=== PATIENT | male | born 1960 | race Caucasian/White ===

== ENCOUNTER → 2024-05-15 13:34 | Outpatient (REF) | payer BC, SELFPAY ==
[2024-05-15 14:32] LABS: Urine Albumin Negative (Neg - Trace); Urine Bilirubin Negative (Negative); Urine Character Clear (Clear); Urine Color Yellow; Urine Glucose Negative (Negative); Urine Ketone Negative (Negative); Urine Leukocyte Negative (Negative); Urine Nitrite Negative (Negative); Urine Occult Blood Trace (Negative); Urine Specific Gravity 1.015 (<1.030); Urine Urobilinogen Negative (Neg - 1+); Urine pH 6.5 (5.0-9.0)
[2024-05-15 14:37] LABS: % Basophils 0.6 % (0-2); % Eosinophils 5.1 % (0-6); % Immature Granulocytes 0.3 % (0-0.5); % Lymphocytes 19.9 % (20.5-51.1); % Monocytes 11.3 % (1.7-9.3); % Neutrophils 62.8 % (42.2-75.2); Absolute Eosinophils 0.2 10^3/uL (0-0.7); Absolute Lymphocytes 0.7 10^3/uL (1.2-3.4); Absolute Monocytes 0.4 10^3/uL (0.1-0.6); Absolute Neutrophils 2.1 10^3/uL (1.4-6.5); Hemoglobin 14.7 g/dL (13.0-18.0); Mean Corp Hgb Conc. 34.2 g/dL (33.0-37.0); Mean Corpuscular Hgb 30.7 pg (27.0-31.0); Mean Corpuscular Volume 89.8 fL (80.0-94.0); Mean Platelet Volume 10.4 fL (7.4-10.4); Nucleated Red Blood Cells % 0 % (-); Platelet Count 102 10^3/uL (130-400); Red Blood Cell Count 4.79 10^6/uL (4.70-6.10); Red Cell Dist. Width 14.1 % (11.5-14.5); White Blood Cell Count 3.4 10^3/uL (4.8-10.8)
[2024-05-15 14:40] LABS: ALT (SGPT) 42 U/L (0-50); AST (SGOT) 51 U/L (17-59); Albumin 4.5 g/dl (3.5-5.0); Alkaline Phosphatase 174 U/L (38-126); Blood Urea Nitrogen 30 mg/dl (9-20); Calcium 9.8 mg/dl (8.4-10.2); Carbon Dioxide 27 mmol/L (22-30); Chloride 105 mmol/L (98-107); Glucose 136 mg/dl (70-99); HDL Cholesterol 99 mg/dl; LDL Cholesterol, Calculated 41 mg/dl; Potassium 4.4 mmol/L (3.5-5.1); Sodium 142 mmol/L (135-145); Total Bilirubin 2.5 mg/dl (0.2-1.3); Total Cholesterol 148 mg/dl (50-199); Total Protein 7.6 g/dl (6.3-8.2); Triglyceride 41 mg/dl (10-149); Very Low Density Lipoprotein 8 mg/dl (0-30); eGFR > 60.00
[2024-05-15 15:07] LABS: Urine Bacteria Few (Negative); Urine Mucus Few; Urine Red Blood Cell 0-2 /HPF (0-2); Urine White Cell 0-2 /HPF (0-5)
[2024-05-15 15:22] LABS: Microalbumin, Random Urine 7.1 mg/dl (0.6-1.7)
[2024-05-16 09:49] LABS: Glycohemoglobin (HgbA1c) 7.2 % (4.0-5.6)
== END ==
LOC: REG 13:34
PROVIDERS: ATTENDING PHYSICIAN Physician Assistant; OTHER PHYSICIAN Internal Medicine Endocrinology, Diabetes & Metabolism
DX: E11.42 Type 2 diabetes mellitus with diabetic polyneuropathy (principal); K70.31 Alcoholic cirrhosis of liver with ascites; I10 Essential (primary) hypertension; Z12.5 Encounter for screening for malignant neoplasm of prostate; R35.0 Frequency of micturition
CPT/HCPCS: 36415; 80053; 80061; 81003; 81015; 82043; 83036; 85025; G0103

== ENCOUNTER → 2024-07-24 10:35 | Outpatient (REF) | payer BC, SELFPAY | LOC: RAD 10:35 | PROVIDERS: ATTENDING PHYSICIAN Podiatrist Foot & Ankle Surgery; FAMILY PHYSICIAN Physician Assistant | DX: E11.40 Type 2 diabetes mellitus with diabetic neuropathy, unspecified (principal); M14.60 Charcot's joint, unspecified site | CPT/HCPCS: 73630 ==

== ENCOUNTER → 2024-12-01 06:44 | Outpatient (REF) | payer BC, SELFPAY ==
[2024-12-01 07:43] LABS: % Eosinophils 4.5 % (0-6); % Immature Granulocytes 0.3 % (0-0.5); % Lymphocytes 17.9 % (20.5-51.1); % Monocytes 11.4 % (1.7-9.3); % Neutrophils 64.9 % (42.2-75.2); Absolute Eosinophils 0.1 10^3/uL (0-0.7); Absolute Lymphocytes 0.5 10^3/uL (1.2-3.4); Absolute Monocytes 0.3 10^3/uL (0.1-0.6); Absolute Neutrophils 1.9 10^3/uL (1.4-6.5); Hematocrit 46.5 % (39.0-52.0); Hemoglobin 15.3 g/dL (13.0-18.0); Mean Corp Hgb Conc. 32.9 g/dL (33.0-37.0); Mean Corpuscular Hgb 31.7 pg (27.0-31.0); Mean Corpuscular Volume 96.3 fL (80.0-94.0); Mean Platelet Volume 10.7 fL (7.4-10.4); Nucleated Red Blood Cells % 0 % (-); Platelet Count 107 10^3/uL (130-400); Red Blood Cell Count 4.83 10^6/uL (4.70-6.10); Red Cell Dist. Width 12.9 % (11.5-14.5); White Blood Cell Count 2.9 10^3/uL (4.8-10.8)
[2024-12-01 08:07] LABS: ALT (SGPT) 59 U/L (0-50); AST (SGOT) 57 U/L (17-59); Albumin 4.4 g/dl (3.5-5.0); Alkaline Phosphatase 174 U/L (38-126); Blood Urea Nitrogen 33 mg/dl (9-20); Calcium 8.8 mg/dl (8.4-10.2); Carbon Dioxide 29 mmol/L (22-30); Chloride 102 mmol/L (98-107); Glucose 131 mg/dl (70-99); Potassium 4.1 mmol/L (3.5-5.1); Sodium 140 mmol/L (135-145); Total Bilirubin 2.1 mg/dl (0.2-1.3); Total Protein 7.3 g/dl (6.3-8.2); eGFR > 60.00
[2024-12-01 08:33] LABS: PSA, Total - Screen 0.71 ng/ml (0.0-4.0); TSH Reflex To Free T4 1.86 uIU/ml (0.47-4.68)
== END ==
LOC: REG 06:44
PROVIDERS: ATTENDING PHYSICIAN Physician Assistant
DX: E11.42 Type 2 diabetes mellitus with diabetic polyneuropathy (principal); K70.9 Alcoholic liver disease, unspecified; F10.10 Alcohol abuse, uncomplicated; D53.9 Nutritional anemia, unspecified; M79.2 Neuralgia and neuritis, unspecified; Z13.29 Encounter for screening for other suspected endocrine disorder; R01.1 Cardiac murmur, unspecified; Z12.5 Encounter for screening for malignant neoplasm of prostate
CPT/HCPCS: 36415; 80053; 84443; 85025; G0103

== ENCOUNTER → 2025-05-07 08:07 | Outpatient (REF) | payer BC, SELFPAY ==
[2025-05-07 09:20] LABS: % Basophils 0.6 % (0-2); % Eosinophils 0.5 % (0-6); % Immature Granulocytes 0.3 % (0-0.5); % Lymphocytes 4.4 % (20.5-51.1); % Monocytes 16.2 % (1.7-9.3); Absolute Basophils 0.1 10^3/uL (0-0.2); Absolute Lymphocytes 0.3 10^3/uL (1.2-3.4); Absolute Monocytes 1.3 10^3/uL (0.1-0.6); Hematocrit 46.3 % (39.0-52.0); Hemoglobin 15.3 g/dL (13.0-18.0); Mean Corpuscular Hgb 31.6 pg (27.0-31.0); Mean Corpuscular Volume 95.7 fL (80.0-94.0); Nucleated Red Blood Cells % 0 % (-); Red Blood Cell Count 4.84 10^6/uL (4.70-6.10); Red Cell Dist. Width 14.6 % (11.5-14.5); White Blood Cell Count 7.7 10^3/uL (4.8-10.8)
[2025-05-07 09:35] LABS: Glycohemoglobin (HgbA1c) 7.3 % (4.0-5.6)
[2025-05-07 09:46] LABS: HDL Cholesterol 55 mg/dl; Iron 56 ug/dl (49-181); LDL Cholesterol, Calculated 88 mg/dl; Total Cholesterol 164 mg/dl (50-199); Triglyceride 109 mg/dl (10-149); Very Low Density Lipoprotein 21 mg/dl (0-30)
[2025-05-07 09:56] LABS: Percent Saturation 20 % (20-50); Total Iron Binding Capacity 268 ug/dl (261-462)
[2025-05-07 10:03] LABS: Microalbumin, Random Urine 10.4 mg/dl (0.6-1.7)
[2025-05-07 10:36] LABS: Vitamin B12 > 1000 pg/ml (239-931)
[2025-05-07 11:52] LABS: Mean Platelet Volume 11.4 fL (7.4-10.4); Platelet Count 94 10^3/uL (130-400)
== END ==
LOC: REG 08:07
PROVIDERS: ATTENDING PHYSICIAN Physician Assistant
DX: E11.42 Type 2 diabetes mellitus with diabetic polyneuropathy (principal); K70.9 Alcoholic liver disease, unspecified; F10.10 Alcohol abuse, uncomplicated; D53.8 Other specified nutritional anemias; M79.2 Neuralgia and neuritis, unspecified; Z13.29 Encounter for screening for other suspected endocrine disorder; R01.1 Cardiac murmur, unspecified; Z12.5 Encounter for screening for malignant neoplasm of prostate
CPT/HCPCS: 36415; 80061; 82043; 82607; 82728; 83036; 83540; 83550; 84425; 85025

== ENCOUNTER 2025-05-08 14:08 | Inpatient (IN) | payer BC, SELFPAY ==
[2025-05-08] VITALS (14 sets, daily range): BP systolic 115–163; BP diastolic 70–86; BMI 30.6; BMI 29.4
[2025-05-08] MEDS: TORADOL 15 MG IV (11:09)
--- NOTE | 2025-05-08 11:18 | ED.GENMED ---
History of Present Illness
General
Chief Complaint: Skin Problem
Source: patient
Exam Limitations: none
Time Seen by Provider: 05/08/25 10:34
Nursing documentation reviewed up to this point in time: agreed with
History of Present Illness
History of Present Illness:
Patient with history of diabetes presents to ED secondary to worsening open foot ulcer noted on the bottom of his left foot over the past 5 days w drainage. Since then, opening has gotten larger with swelling as well as redness and pain over his
left big toe. Denies fever, but reports chills sensation. Denies nausea or vomiting. Denies direct trauma. Patient does have history of neuropathy, and has decreased sensation of his extremities. Patient also in the past has had foot ulcer,
treated with antibiotics. Denies direct trauma.
Past History
Past History
ED Past Medical History: HTN and Hypercholesterolemia
ED Past Surgical History: Other (Eye)
Social History
Tobacco: Non-smoker
Alcohol: Chronic alcoholic
Drug: None
Personal:
Living: with family
Review of Systems
Review of Systems
All Other Systems: ROS reviewed and negative except as documented in HPI and ROS
Constitutional: Reports chills; Denies fever
EENT: Reports no symptoms
Respiratory: Reports no symptoms
ABD/GI: Reports no symptoms; Denies nausea or vomiting
Musculoskeletal: Reports other (Toe pain)
Skin: Reports other (foot ulcer with drainage)
Neurological: Reports no symptoms
Phy Exam
Physical Exam
Physical Exam:
Physical Exam
General: mild distress, not acutely ill. afebrile
Head: nc/at. eomi
Neck: supple. no meningeal signs.
Abdomen: normal bowel sounds. not tender.
Neuro: alert and oriented x 3. no focal neurological deficits
Skin: no rash
Psychiatric: well kept. interactive and cooperative
Extremities: left foot: an approx 0.5 cm open ulcer noted over plantar surface with purulent drainage, along with swelling/erythema upto midfoot. open wound/drainage also noted over dorsal aspect of left foot at base of 2nd
MTP.
Course
Orders/Labs/Results
Orders:
Orders
05/08/25 Lunch
2000 calorie (17 carb) Diabetic
At Your Request: Full Participation
05/08/25 10:53
Ketorolac [Toradol] 15 mg IV NOW STA
CR Foot - Left 2 Views Urgent
Comment:
Reason For Exam: open ulcer with drainage over plantar surface
05/08/25 11:04
Basic Metabolic Panel Urgent
Complete Blood Count/With Diff Urgent
Lactic Acid Q4H
Comment: CANCEL 2nd LACTIC ACID IF 1st LACTIC ACID IS LESS THAN 2
Magnesium Urgent
Blood Culture Q30M
MATHIEU Source: Blood/Venous
Specimen Description:
05/08/25 11:10
Piperacillin/Tazo 3.375 Gram [Zosyn] 3.375 gram in 50 ml IV NOW
05/08/25 11:31
Blood Culture Q30M
MATHIEU Source: Blood/Venous
Specimen Description:
05/08/25 12:08
Vancomycin [Vancocin] 2,000 mg 0.9% Sodium Chloride 500 ml [Nss] 500 ml IV NOW
05/08/25 12:33
Wound Culture [Wound/Abscess/Other Culture] Urgent
MATHIEU Source: Foot
Specimen Description: Left
Date Specimen was Collected: 05/08/25
Time Specimen was Collected: 12:29
05/08/25 13:47
Admit/Transfer Patient As Directed
Co-Sign Provider:
Level of Care: Inpatient admission
Assign to:: Medical/Surgical
Physician / Group: hospitalist-Jo
Diagnosis: foot cellulitis/ulcer
Reason for Hospitalization: IV abx
MRI
podiatry/ID consult
Expected length of stay greater than two midnights?: Yes
ELOS- Estimated Length of Stay in days: 4
I certify the patient meets the requirements for IP care: Yes
PRN Pain Medication Management As Directed
May give lesser potent ordered pain med per pt: Yes
preference::
Protocol:: Medication orders for pain may be administered in a
manner that supports deferring to patient preference
when the pt is:
- Requesting an ordered lesser potent pain medication.
Least to most potent pain medications are defined
as: acetaminophen < NSAID < tramadol < opioids
(morphine, oxycodone, hydromorphone).
- Requesting a lesser dose of the same medication IF
ORDERED.
- Requesting a less intrusive route of administration
if both routes are prescribed by the provider (PO <
IV).
05/08/25 13:49
Code Status As Directed
Resuscitation Status: Full Code
05/08/25 15:23
Acetaminophen [Tylenol] 650 mg PO Q6HPRN PRN
Dextrose 50%-Water [Dextrose 50% Syringe] 12.5 grams IV [id number] PRN
Glucagon [GlucaGen] 1 mg IM PRN PRN
HYDROmorphone [Dilaudid] 0.25 mg IV Q4HPRN PRN
Ketorolac [Toradol] 15 mg IV Q6HPRN PRN
VANCOMYCIN Pharmacy to Dose [VANCOCIN Pharmacy to Dose] 1 each Pharmacy To Prepare [Call Pharmacy To Prepare] 0 ml IV PER PROTOCOL
05/08/25 15:23
INFECTIOUS DISEASE CONSULT Routine
Consulting Provider: Vivienne Cunningham
Was physician already notified: Yes
PODIATRY CONSULT Routine
Consulting Provider: Mini Sims
Was physician already notified: Yes
Activity As Directed
Activity Level: Out of Bed-Early Mobility
Bedside Glucose Monitoring As Directed
Frequency: AC&HS
Additional Instructions:: Change to q6h if pt on TPN, tube feeding or not eating
Intake/ Output As Directed
Frequency: Per unit guidelines
Vital Signs As Directed
Frequency: Per unit guidelines
Pt Eval And Treat Routine
Activity Level: Out of Bed-Early Mobility
DX Deep Vein Thrombosis Video Routine
05/08/25 16:30
Insulin Aspart Corrective Low [Novolog Flexpen-Low Resistance] See Protocol SC AC
05/08/25 18:00
Enoxaparin Sodium [Lovenox] 40 mg SC QPM
Pregabalin [Lyrica] 75 mg PO QID
05/09/25 06:22
Complete Blood Count/No Diff IN AM
Comprehensive Metabolic Panel IN AM
05/09/25 06:54
MR Left Le No Joint Without Routine
Comment: ATTENTION TO LEFT FOOT--eval for depp abscess
Reason For Exam: cellulitis/ulcer
OK for patient to be off Cardiac Monitoring for MRI: Yes
Recent pill cam endoscopy?: No
05/09/25 08:00
Dapagliflozin [Farxiga] 10 mg PO DAILY
Duloxetine Delayed Release [Cymbalta Delayed Release] 60 mg PO DAILY
Abnormal Lab Results
05/08/25
11:04
RBC 4.66 L 10^6/uL
(4.70-6.10)
MCH 31.8 H pg
(27.0-31.0)
Plt Count 102 L 10^3/uL
(130-400)
MPV 11.3 H fL
(7.4-10.4)
Absolute Neuts (auto) 6.6 H 10^3/uL
(1.4-6.5)
Absolute Lymphs (auto) 0.3 L 10^3/uL
(1.2-3.4)
Absolute Monos (auto) 1.6 H 10^3/uL
(0.1-0.6)
Neutrophils % 77.1 H %
(42.2-75.2)
Lymphocytes % 2.9 L %
(20.5-51.1)
Monocytes % 18.4 H %
(1.7-9.3)
Carbon Dioxide 20 L mmol/L
(22-30)
BUN 38 H mg/dl
(9-20)
Glucose 258 H mg/dl
(70-99)
05/08/25 11:04
05/08/25 11:04
Vital Signs
Initial and Last Documented VS:
Initial Vital Signs
Temp Pulse Resp BP Pulse Ox
98.1 F 78 18 127/80 96
05/08/25 10:28 05/08/25 10:28 05/08/25 10:28 05/08/25 10:28 05/08/25 10:28
Last Documented Vital Signs
Temp Pulse Resp BP Pulse Ox
98.0 F 72 16 126/74 95
05/09/25 07:55 05/09/25 07:55 05/09/25 07:55 05/09/25 07:55 05/09/25 07:55
MDM/Problems Addressed
MDM/Problems Addressed:
History and exam concerning for rapidly progressing open wound with development of cellulitis, with clinical concern for development of osteomyelitis. As such, patient will be admitted for IV antibiotics.
X-ray report reviewed - no evidence osteomyelitis, but findings consistent with likely cellulitis and or abscess development.
*Pulse Oximetry
SaO2: 96
Oxygen Mode of Delivery: Room air
Patient hypoxic: no
*Critical Care Note
Total Time (30-74mins, 75-104mins- exclusive of procedures): Not Applicable
ED Attending Note
-
Portions of this chart may have been created with voice recognition software.� Occasional wrong word or��sound alike� substitutions may have occurred due to the inherent limitations of voice recognition software.
Discharge Plan
Departure
Patient Disposition: Admit
Date of Disposition: 05/08/25
Time of Disposition: 12:16
Admit to: Med/Surg
Presentation/result/management discussed w/ accepting MD/DO: Hospitalist
Discharge Problem:
Diabetic foot ulcer, Cellulitis
Interventions
Interventions:
*Risk Screen - Suicide Last Done: 05/08/25 10:28
*General Assessment Last Done: 05/08/25 10:28
*Neglect/Abuse Screening Last Done: 05/08/25 10:28
*ED- Fall Risk Assessment Last Done: 05/08/25 12:30
*ED COVID-19 Vaccine History Last Done: 05/08/25 12:30
*Nursing Disposition Last Done: 05/08/25 15:21
ED-Skin Assessment Last Done: 05/08/25 12:30
Discharge Date and Time
Discharge Date/Time: 05/08/25 15:28
[2025-05-08] MEDS: ZOSYN 50 IV ×2 (11:30→23:17)
[2025-05-08 11:34] LABS: Lactic Acid 1.2 mmol/L (0.7-2.0)
[2025-05-08 11:41] LABS: % Basophils 0.6 % (0-2); % Eosinophils 0.7 % (0-6); % Immature Granulocytes 0.3 % (0-0.5); % Lymphocytes 2.9 % (20.5-51.1); % Monocytes 18.4 % (1.7-9.3); % Neutrophils 77.1 % (42.2-75.2); Absolute Basophils 0.1 10^3/uL (0-0.2); Absolute Eosinophils 0.1 10^3/uL (0-0.7); Absolute Lymphocytes 0.3 10^3/uL (1.2-3.4); Absolute Monocytes 1.6 10^3/uL (0.1-0.6); Absolute Neutrophils 6.6 10^3/uL (1.4-6.5); Hematocrit 43.7 % (39.0-52.0); Hemoglobin 14.8 g/dL (13.0-18.0); Mean Corp Hgb Conc. 33.9 g/dL (33.0-37.0); Mean Corpuscular Hgb 31.8 pg (27.0-31.0); Mean Corpuscular Volume 93.8 fL (80.0-94.0); Mean Platelet Volume 11.3 fL (7.4-10.4); Nucleated Red Blood Cells % 0 % (-); Platelet Count 102 10^3/uL (130-400); Red Blood Cell Count 4.66 10^6/uL (4.70-6.10); Red Cell Dist. Width 14.3 % (11.5-14.5); White Blood Cell Count 8.6 10^3/uL (4.8-10.8)
[2025-05-08 11:45] LABS: Blood Urea Nitrogen 38 mg/dl (9-20); Calcium 8.6 mg/dl (8.4-10.2); Carbon Dioxide 20 mmol/L (22-30); Chloride 107 mmol/L (98-107); Estimated Creatinine Clearance 78 ml/min; Glucose 258 mg/dl (70-99); Magnesium 2.3 mg/dl (1.6-2.3); Potassium 4.5 mmol/L (3.5-5.1); Sodium 137 mmol/L (135-145); eGFR > 60.00
[2025-05-08] MEDS: VANCOCIN 540 MG IV (12:32)
--- NOTE | 2025-05-08 13:28 | HPS.HSE ---
Family Physician
-
Family Physician: Amira Davis
Chief Complaint
-
draining plantar foot ulcer
History of Present Illness
Patient is a 64-year-old male with a past medical history significant for type 2 diabetes mellitus and cirrhosis from alcohol who comes in complaining of left foot pain with bleeding from a foot ulcer. Patient states that this past May 03,
2024 he developed an ulcer on the bottom of his left foot. He states that on Saturday, May 05, 2025 it became red including red on the top/dorsum of the foot along with bleeding from the ulcer. He states that he had chills and fatigue but no
fevers. He stated that the redness started on this past Saturday and has not progressed. He reports only seeing bleeding and no pus draining. He is complaining of pain to that left foot as well. X-ray of the foot done in the emergency
department shows soft tissue swelling with gas in the soft tissues consistent with cellulitis although abscess or fasciitis cannot be ruled out. No evidence of osteomyelitis. Patient is being admitted.
Medical History
Past Medical History
Past Medical History: Reports Other
Additional Past Medical History:
Type 2 diabetes mellitus
Cirrhosis from presumed alcohol use
Past Surgical History: Reports Other
Additional Past Surgical History:
Repaired rupture patella tendon in 2006
Social History
Tobacco: Non-smoker
Alcohol: Other (There are reports that he has been 'an alcoholic' in the past--his last drink he said was April 19, 2025)
Drug: None
Personal:
Living: With Family
Family History
Family History: Adopted
Allergies / Home Medications
Allergies reflects when Allergies were last updated in [employer].
Home Medications with original date entered in [employer]
Allergy/Medication List:
Allergies
Allergy/AdvReac Type Severity Reaction Status Date / Time
No Known Allergies Allergy Verified 05/08/25 10:28
Home Medications
duloxetine 60 mg capsule,delayed release (Cymbalta) 60 mg PO DAILY 05/08/25
empagliflozin 10 mg tablet (Jardiance) 10 mg PO DAILY 05/08/25
ibuprofen 125 mg-acetaminophen 250 mg tablet (Advil Dual Action) 3 tab PO DAILYPRN PRN mild pain 05/08/25
pregabalin 75 mg capsule (Lyrica) 75 mg PO QID 05/08/25
Review of Systems
-
A 12 point ROS was completed and negative except as noted: Yes
Constitutional: Reports Fatigue and Chills; Denies Fever
EENT: Reports No Symptoms
Respiratory: Reports No Symptoms; Denies Cough or Trouble Breathing
Cardiac: Reports No Symptoms; Denies Chest Pain
Abdomen/GI: Reports No Symptoms; Denies Abdominal Pain, Nausea, Vomiting or Diarrhea
: Reports No Symptoms
Musculoskeletal: Reports Other (Red painful left foot with bleeding from bottom of foot)
Skin: Reports No Symptoms
Neurological: Reports No Symptoms
Endocrine: Reports No Symptoms
Hematologic/Lymphatic: Reports No Symptoms
Psych: Reports No Symptoms
Physical Exam
Vital Signs
Vital Signs
Temp Pulse Resp BP Pulse Ox
98.1 F 69 16 127/76 95
05/08/25 10:28 05/08/25 12:43 05/08/25 12:43 05/08/25 12:43 05/08/25 12:43
Physical Exam
General: Well Developed, Well Nourished, No Apparent Distress and Obese
HEENT: NormoCephalic, Anicteric and Atraumatic; No Oxygen
Respiratory: Clear; No Wheezes, Rales, Rhonchi or Crackles
Cardiac: S1/S2 and Regular Rhythm
GI: Soft, Non Tender, Non Distended, Normal Bowel Sounds and No Hepatosplenomegaly (None appreciated by myself)
Musculoskeletal: No Clubbing, No Cyanosis and Other (Left foot: Plantar surface with approximately nickel to quarter size ulcer with smaller area approximately 'pencil eraser sized' ulcer draining pus--toes swollen--redness on dorsum of foot into
toes--no lymphangitic spread)
Neuro: Awake and Alert
Psych: Calm
Laboratory Results
-
05/08/25 11:04
05/08/25 11:04
Laboratory Results
Lactic Acid 1.2 mmol/L (0.7-2.0) 05/08/25 11:04
Impression/Plan
-
Patient is a 64-year-old male
Foot ulcer with bleeding, dorsal redness, pain--likely caused by diabetes--no evidence of osteomyelitis on x-ray--ADMIT to med/surg--consult podiatry--consult ID--ED started Vanco and will continue for now--ordering MRI of the left foot as requested
by podiatry--pain control
Type II diabetes mellitus with neuropathy--blood sugar 258--patient on Jardiance which we will continue--add sliding scale insulin--continue Lyrica
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
DVT prophylaxis
CODE STATUS--full code
--- NOTE | 2025-05-08 15:13 | CM ---
chef manager reviewed patient's chart and patient was admitted with draining planter foot ulcer, ID and Podiatry were consulted, case managers met with patient and patient states that he lives with his spouse in a 2 story home, patient is independent
with adl's and ambulation, no dme, home when stable.
PCP: Amira Davis
Pharmacy: [facility].
--- NOTE | 2025-05-08 15:16 | W.PN.UPDATE ---
Update Note
Progress Note Update
pt seen
full consult dictated
gas noted in ST/ wound probes to bone
gas on xrays
I&D at bedside, decompressed
wound blows out dorsally
will take to OR and tx infection and dr masters
consent signed
[2025-05-08 16:46] LABS: Glucose - Point of Care 219 mg/dl (70-99)
--- NOTE | 2025-05-08 16:53 | PTCARENOTE ---
Pt was received from ED at 1530. Pt stood and pivoted to the unit bed from the wheelchair. Pt complaining of 5/10 pain on his left foot. Pain medications reviewed but pt does not want any at the moment. Bright red blood on the left foot dressing.
Dressing reinforced. Plan for OR later tonight. Pt resting in bed.
[2025-05-08] MEDS: LYRICA PO (17:09)
[2025-05-08] MEDS: NOVOLOG FLEXPEN-LOW RESISTANCE 2 UNITS SC (17:30)
--- NOTE | 2025-05-08 17:35 | PHA.VAN.IN ---
Assessment
- Assessment
Renal Function: Appears similar to baseline
Plan
- Plan
Initial / Loading Dose: 2000mg - 05/08 12:32
Maintenance Regimen: dosing by level
Monitoring: random 05/09 06
SCR appears at baseline - BUN slightly elevated, will start dosing by level for now to ensure patient clearing appropriately
Pharmacokinetics Vancomycin I
- -
Patient Age: 64
Patient Sex: Male
Vancomycin Day #: 1
Indication: Skin And Soft Tissue
Requesting Provider: Dr. Osorio
Pertinent Antimicrobial Allergies:
NKDA
Height / Weight:
Height 6 ft
Actual Weight 98.146 kg
Pertinent Past Medical History: DM II, Cirrhosis
- Vital Signs / Lab Results
Temp Pulse Resp BP Pulse Ox
98.7 F 81 16 163/86 96
05/08/25 15:30 05/08/25 15:30 05/08/25 15:30 05/08/25 15:30 05/08/25 15:30
Lab Results - Hematology
05/08/25
11:04
WBC 8.6
Lab Results - Chemistry
05/08/25
11:04
BUN 38 H
Creatinine 1.2
Estimated Creat Clear 78
05/08/25 05/08/25
11:04 15:00
Lactic Acid 1.2 Cancelled
Microbiology Results
05/08/25 12:33 Gram Stain - Preliminary
Foot - Left
--- NOTE | 2025-05-08 18:06 | CON.ID ---
Consultation
-
Date/Time Consultation Requested: May 08, 2025 1523
Date/Time Consultation Performed: May 08, 2025 1600
Requesting Provider: Dr. Toyin Osorio
Performing Provider: Dr. Vivienne Cunningham
Reason for Consultation: Draining foot wound and cellulitis
Chief Complaint / Past History
Chief Complaint
Red and swollen foot
History of Present Illness
64-year-old male with history of diabetes mellitus, neuropathy, alcohol cirrhosis who presented to the ED today due to draining left plantar wound. He noticed the wound on the bottom of his left foot on Saturday which then progressively got worse
with surrounding erythema extending to the dorsum of his foot. Wound was draining bloody fluid. No fevers. Positive chills. Positive weakness. Denies recent injury or trauma to the foot. In the ED x-ray showed soft tissue swelling with gas,
possible abscess. He was seen by podiatry who will take him to the OR. No nausea or vomiting. No abdominal pain or diarrhea. No urine symptoms.
Past History
Additional Past Medical History:
Diabetes mellitus
Neuropathy
Alcohol cirrhosis
Additional Past Surgical History:
Ruptured patellar repair
Allergy History:
No Known Allergies Allergy (Verified 05/08/25 10:28)
Medications Reviewed: Yes
Current Antibiotics:
Vancomycin
Social History
Tobacco: Non-Smoker
Alcohol: Former
Drug: None
Personal:
Living: With Family
Family History
Family History: Not Pertinent
Review of Systems
Review of Systems
General: Chills and Change in Appetite; Negative Fever
HEENT: Negative Sinus Problems, Headache or Pharyngitis
Cardiovascular: Edema; Negative Chest Pain
Respiratory: Negative Dyspnea or Cough
Gasteroenterology: Negative Nausea, Vomiting or Diarrhea
Genital / Urological: Negative Dysuria or Flank Pain
Endocrine: Weakness and Fatigue
All systems: All other systems were reviewed and were negative
Vital Signs
Temp Pulse Resp BP Pulse Ox
98.7 F 81 16 163/86 96
05/08/25 15:30 05/08/25 15:30 05/08/25 15:30 05/08/25 15:30 05/08/25 15:30
Physical Exam
Physical Exam
Constitutional: No Acute Distress
Eyes: No Conjunctival Hemorrhage and Sclera Anicteric
Cardiovascular: Regular Rate and S1/S2
Pulmonary: Clear
Gastrointestinal: Soft, Non Tender, Non Distended and Normal Bowel Sounds
Genito-Urinary: Negative CVA Tenderness
Extremities: Edema (left foot/leg ) and Erythema (left forefoot erythema)
Wound: Other (Left plantar round wound with central drainage seropurulent fluid )
Neurological: AO x 3
Lab / Diagnostic Study Results
05/08/25 11:04
05/08/25 11:04
Abs Immat Gran (auto) 0.0 10^3/uL (0-0.05) 05/08/25 11:04
Absolute Neuts (auto) 6.6 10^3/uL (1.4-6.5) H 05/08/25 11:04
Absolute Lymphs (auto) 0.3 10^3/uL (1.2-3.4) L 05/08/25 11:04
Absolute Monos (auto) 1.6 10^3/uL (0.1-0.6) H 05/08/25 11:04
Absolute Basos (auto) 0.1 10^3/uL (0-0.2) 05/08/25 11:04
Immature Gran % 0.3 % (0-0.5) 05/08/25 11:04
Neutrophils % 77.1 % (42.2-75.2) H 05/08/25 11:04
Lymphocytes % 2.9 % (20.5-51.1) L 05/08/25 11:04
Monocytes % 18.4 % (1.7-9.3) H 05/08/25 11:04
Eosinophils % 0.7 % (0-6) 05/08/25 11:04
Basophils % 0.6 % (0-2) 05/08/25 11:04
Lactic Acid Cancelled 05/08/25 15:00
Microbiology Results
Micro:
05/08/25 17:28 MRSA Screen - Pending
Nose
05/08/25 12:33 Wound Culture - Pending
Foot - Left Gram Stain - Preliminary
05/08/25 11:31 Blood Culture - Pending
Blood/Venous
05/08/25 11:04 Blood Culture - Pending
Blood/Venous
05/08/25 L foot xray: Soft tissue swelling with gas in the soft tissues, consistent with cellulitis. Possible abscess collections and/or fasciitis.
Assessment / Plan
# Diabetic left foot infected plantar wound with underlying osteomyelitis
# Left foot emphysematous cellulitis
# DM with neuropathy
# Cirrhosis
- Wound probes to bone per Podiatry.
To OR today.
- Add Zosyn to cover gas-producing bacteia
- Continue Vancomycin for now.
- Follow OR cx's.
[2025-05-08] MEDS: ZOSYN IV (19:05)
--- NOTE | 2025-05-08 19:45 | W.PN.UPDATE ---
Update Note
Progress Note Update
pt seen in RR
no pain
dressing cdi
cft intact
a/p s/.p radical I&D/deep interspace, excisional debridement of ulcer, 2nd met head resection left foot--stable, wound packed
nwb left foot
rec ID consult
will need another procedure to close, possible 2nd toe amp
Pt consult
[2025-05-08 19:48] LABS: Glucose - Point of Care 168 mg/dl (70-99)
--- NOTE | 2025-05-08 21:00 | PTCARENOTE ---
Receive pt from PACU. Pt alert oriented X3, in no distress, offers no complaint of pain, nausea, vomiting, or dizziness. VSS (T=98.9, HR=75, RR=18, JB=391/71, SpO2=95% on RA). Pt voids 500cc of randa color urine. Discuss with the pt left foot
no-bearing order. Advise pt to call for assistance. Call kline within reach. Will continue to monitor the pt.
[2025-05-08 21:26] LABS: Glucose - Point of Care 220 mg/dl (70-99)
[2025-05-08] MEDS: LYRICA 75 MG PO (21:40)
[2025-05-09] VITALS (7 sets, daily range): BP systolic 126–148; BP diastolic 68–80; PULSE 71; O2SAT 95
[2025-05-09] MEDS: ZOSYN 50 IV ×4 (05:12→23:29)
[2025-05-09] MEDS: DILAUDID 0.25 MG IV (05:20)
[2025-05-09 07:02] LABS: Hematocrit 39.6 % (39.0-52.0); Hemoglobin 13.3 g/dL (13.0-18.0); Mean Corp Hgb Conc. 33.6 g/dL (33.0-37.0); Mean Corpuscular Hgb 31.8 pg (27.0-31.0); Mean Corpuscular Volume 94.7 fL (80.0-94.0); Mean Platelet Volume 11.5 fL (7.4-10.4); Platelet Count 103 10^3/uL (130-400); Red Blood Cell Count 4.18 10^6/uL (4.70-6.10); Red Cell Dist. Width 14.6 % (11.5-14.5); White Blood Cell Count 6.6 10^3/uL (4.8-10.8)
[2025-05-09] MEDS: CYMBALTA DELAYED RELEASE 60 MG PO (07:25)
[2025-05-09] MEDS: LYRICA 75 MG PO ×4 (07:25→21:06)
[2025-05-09] MEDS: FARXIGA 10 MG PO (07:25)
[2025-05-09 07:35] LABS: Vancomycin Random 9.9 ug/ml
[2025-05-09 07:40] LABS: ALT (SGPT) 26 U/L (0-50); AST (SGOT) 29 U/L (17-59); Albumin 3.2 g/dl (3.5-5.0); Alkaline Phosphatase 180 U/L (38-126); Blood Urea Nitrogen 32 mg/dl (9-20); Carbon Dioxide 20 mmol/L (22-30); Chloride 109 mmol/L (98-107); Estimated Creatinine Clearance 69 ml/min; Glucose 163 mg/dl (70-99); Potassium 4.1 mmol/L (3.5-5.1); Sodium 138 mmol/L (135-145); Total Bilirubin 2.5 mg/dl (0.2-1.3); Total Protein 6.2 g/dl (6.3-8.2); eGFR > 60.00
[2025-05-09 08:26] LABS: Glucose - Point of Care 206 mg/dl (70-99)
[2025-05-09] MEDS: NOVOLOG FLEXPEN-LOW RESISTANCE 2 UNITS SC (08:53)
--- NOTE | 2025-05-09 09:27 | PHA.VAN.FU ---
Vancomycin Assessment / Plan
- Assessment
Renal Function: Stable
WBC's are: Trending Down
In the past 24 hrs, patient has been: Afebrile
Concomitant Antimicrobials: Piperacillin-tazobactam
- Assessment - Therapeutic Drug Monitoring
Random Level: R = 9.9 ~18hrs post Vanc 2gm
- Dosing Plan
Continue: Dose by level for now--SCr and BUN still elevated
Dosing by Level: Re-dose today (Vanc 1250mg--12.7mg/kg)
- Monitoring Plan
Random Level: 05/10 AM
- Follow Up
Pharmacy will continue to follow.
Vancomycin Follow UP
- -
Patient Age: 64
Patient Sex: Male
Vancomycin Day #: 2
Indication: Skin And Soft Tissue
Requesting Provider: Dr. Osorio
Pertinent Antimicrobial Allergies:
NKDA
Height / Weight:
Height 6 ft
Actual Weight 98.146 kg
Pertinent Past Medical History: DM II, Cirrhosis
- Vital Signs / Lab Results
Temp Pulse Resp BP Pulse Ox
98.0 F 72 16 126/74 95
05/09/25 07:55 05/09/25 07:55 05/09/25 07:55 05/09/25 07:55 05/09/25 07:55
Lab Results - Hematology
05/08/25 05/09/25
11:04 06:22
WBC 8.6 6.6
Lab Results - Chemistry
05/08/25 05/09/25
11:04 06:22
BUN 38 H 32 H
Creatinine 1.2 1.2
Estimated Creat Clear 78 69
Albumin 3.2 L
05/08/25 05/08/25
11:04 15:00
Lactic Acid 1.2 Cancelled
Microbiology Results
05/08/25 12:33 Gram Stain - Preliminary
Foot - Left
Therapeutic Drug Monitoring
Random Vancomycin 9.9 ug/ml 05/09/25 06:22
[2025-05-09] MEDS: VANCOCIN 275 MG IV (10:00)
--- NOTE | 2025-05-09 10:09 | W.PN.HOSP.TC ---
Today's Communication/Plan
-
await podiatry input
cont abx
MRI pending
apprec all consultants
Assessment / Plan
Assessment / Plan
pt is a 64 year old male
Foot ulcer with bleeding, dorsal redness, pain--likely caused by diabetes--no evidence of osteomyelitis on x-ray--apprec podiatry s/p I&D with 2nd metatarsal head resection, cultures pending, may need another procedure--apprec ID, cont
vanco/zosyn--MRI of the left foot as requested by podiatry pending--pain control--PT, NWB to left foot
Type II diabetes mellitus with neuropathy--blood sugar 258--patient on Jardiance which we will continue--add sliding scale insulin--continue Lyrica
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
Thrombocytopenia--likely due to cirrhosis/ETOH--follow
DVT prophylaxis
CODE STATUS--full code
Anticipated Discharge: > 48 hours
Subjective/Interval History
-
Date of Service: May 09, 2025
pt s/p foot surgery yesterday--doing well
Objective Data
-
Labs:
Laboratory Results
05/09/25
06:22
WBC 6.6
Hgb 13.3
Hct 39.6
Plt Count 103 L
Sodium 138
Potassium 4.1
Chloride 109 H
Carbon Dioxide 20 L
BUN 32 H
Creatinine 1.2
Glucose 163 H
Calcium 8.0 L
Total Bilirubin 2.5 H
AST 29
ALT 26
Alkaline Phosphatase 180 H
Vital Signs:
Max temp for 24 hours
05/08/25
23:30
Temp 99.1 F
Vital Signs
Temp Pulse Resp BP Pulse Ox
98.0 F 72 16 126/74 95
05/09/25 07:55 05/09/25 07:55 05/09/25 07:55 05/09/25 07:55 05/09/25 07:55
I&O
05/08/25 05/09/25 05/10/25
06:59 06:59 06:59
Intake Total 100 / 100
Output Total 1900 / 1900
Balance -1800 / -1800
Review of Systems
-
All other systems: Reviewed and negative
Physical Exam
-
General: Well Developed, Well Nourished and No Apparent Distress
HEENT: Normocephalic and Atraumatic; Negative Oxygen
Respiratory: Clear to Auscultation; Negative Wheezes, Rales or Rhonchi
Cardiac: Regular Rhythm and S1/S2; Negative Murmur
GI: Soft, Nontender, Nondistended and Normal Bowel Sounds
Musculoskeletal: No Clubbing, No Cyanosis, No Edema and Other (left foot post op, zia wrap, surgical shoe)
Neuro: Awake and Alert
Psych: Calm
--- NOTE | 2025-05-09 11:56 | W.PN.ID1 ---
Date of Service
Date of Service: May 09, 2025
Today's Communication
Continue Vancomycin and Zosyn.
Assessment / Plan
# Diabetic left foot infected plantar wound with underlying osteomyelitis
# Left foot emphysematous cellulitis
# DM with neuropathy
# Cirrhosis
- 05/08 s/p OR radical I&D/deep interspace, excisional debridement of ulcer, 2nd met head resection left foot
- Await OR cx and path
- Continue Zosyn and Vancomycin
Chief Complaint
-: Cellulitis and Other
Subjective / Review of Systems
Feels Ok.
Vital Signs / Physical Exam
Vital Signs
Vital Signs
Temp Pulse Resp BP Pulse Ox
98.0 F 72 16 126/74 95
05/09/25 07:55 05/09/25 07:55 05/09/25 07:55 05/09/25 07:55 05/09/25 07:55
Physical Exam
Constitutional: No Acute Distress
Cardiovascular: Regular Rate and S1/S2
Pulmonary: Clear
Gastrointestinal: Soft, Non Tender, Non Distended and Normal Bowel Sounds
Extremities: Negative Edema
Wound: Other (left foot post-op dressing in place)
Neurological: AO x 3
Objective Data
Lab Data
Lab Results
05/09/25 06:22
05/09/25 06:22
Estimated Creat Clear 69 ml/min 05/09/25 06:22
Lactic Acid Cancelled 05/08/25 15:00
Total Bilirubin 2.5 mg/dl (0.2-1.3) H 05/09/25 06:22
AST 29 U/L (17-59) 05/09/25 06:22
ALT 26 U/L (0-50) 05/09/25 06:22
Alkaline Phosphatase 180 U/L (38-126) H 05/09/25 06:22
Most recent labs reviewed.
Micro Results:
05/08/25 11:31 Blood Culture - Preliminary
Blood/Venous No Growth in 24 hours- Final report to follow
05/08/25 12:33 Wound Culture - Preliminary
Foot - Left Gram Stain - Preliminary
05/08/25 11:04 Blood Culture - Preliminary
Blood/Venous No Growth in 24 hours- Final report to follow
05/08/25 19:30 Tissue Culture - Pending
Foot - Left Gram Stain - Pending
05/08/25 19:30 Wound Culture - Pending
Foot - Left Gram Stain - Pending
05/08/25 19:30 Anaerobic Culture - Pending
Foot - Left
05/08/25 17:28 MRSA Screen - Pending
Nose
05/08/25 L foot xray: Soft tissue swelling with gas in the soft tissues, consistent with cellulitis. Possible abscess collections and/or fasciitis.
--- NOTE | 2025-05-09 12:05 | W.PN.POD ---
Today's Communication
Today's Communication
s/p POD 1--stable
cx pending
wound irrigated, re packed
cont abx
Pt is a pt of dr masters, she will be taking over case as of saturday, I will d.w her
pt also has mri pending
pt will need debridement/probable amp 2nd toe, revisional debridement of 2nd met for clean margin and closure
Assessment / Plan
-
s/p I&D/excisional debridement/2nd met resection---stable
resolving well. cx pending
Subjective
Chief Complaint
pt seen at bedside
no pain
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
dressing w/o strike through blood
Subjective
vasc intact, cft intact
derm s/p radical I&D, deep space debridement and 2nd met head resection
wound granular, decreased cellulitis
no odor, no pus, pt responding well
tissue viable
Objective
Temp Pulse Resp BP Pulse Ox
98.0 F 72 16 126/74 95
05/09/25 07:55 05/09/25 07:55 05/09/25 07:55 05/09/25 07:55 05/09/25 07:55
05/09/25 06:22
05/09/25 06:22
Vital Signs and Lab results were reviewed.
[2025-05-09 12:10] LABS: Glucose - Point of Care 186 mg/dl (70-99)
[2025-05-09] MEDS: NOVOLOG FLEXPEN-LOW RESISTANCE 1 UNITS SC ×2 (12:11→17:10)
--- NOTE | 2025-05-09 14:00 | PTCARENOTE ---
Pt's family assisted pt to walk from the bed to the bathroom without notifying the staff. Pt used a walker and per patient maintained the non-weightbearing status of the left foot. Pt was assisted to walk back to bed by the staff. Left foot dressing
clean, dry and intact, sensation intact. Pt was advised to call next time he needs to get out of bed so the staff can assist him.
[2025-05-09] MEDS: LOVENOX 40 MG SC (17:06)
[2025-05-09 17:10] LABS: Glucose - Point of Care 170 mg/dl (70-99)
[2025-05-09 23:17] LABS: Glucose - Point of Care 221 mg/dl (70-99)
[2025-05-10] MEDS: ZOSYN 50 IV ×4 (05:14→23:17)
[2025-05-10 07:00] VITALS: BP 152/88
[2025-05-10 07:08] LABS: Hematocrit 37.4 % (39.0-52.0); Hemoglobin 12.4 g/dL (13.0-18.0); Mean Corp Hgb Conc. 33.2 g/dL (33.0-37.0); Mean Corpuscular Hgb 31.7 pg (27.0-31.0); Mean Corpuscular Volume 95.7 fL (80.0-94.0); Mean Platelet Volume 11.1 fL (7.4-10.4); Platelet Count 107 10^3/uL (130-400); Red Blood Cell Count 3.91 10^6/uL (4.70-6.10); Red Cell Dist. Width 14.3 % (11.5-14.5)
[2025-05-10 07:21] LABS: Vancomycin Random 8.1 ug/ml
[2025-05-10 07:29] LABS: ALT (SGPT) 24 U/L (0-50); AST (SGOT) 27 U/L (17-59); Alkaline Phosphatase 175 U/L (38-126); Blood Urea Nitrogen 26 mg/dl (9-20); Carbon Dioxide 21 mmol/L (22-30); Chloride 110 mmol/L (98-107); Estimated Creatinine Clearance 83 ml/min; Glucose 186 mg/dl (70-99); Magnesium 2.2 mg/dl (1.6-2.3); Potassium 4.1 mmol/L (3.5-5.1); Sodium 138 mmol/L (135-145); Total Bilirubin 1.8 mg/dl (0.2-1.3); eGFR > 60.00
[2025-05-10 07:43] LABS: Glucose - Point of Care 185 mg/dl (70-99)
[2025-05-10] MEDS: LYRICA 75 MG PO ×4 (07:56→21:37)
[2025-05-10] MEDS: CYMBALTA DELAYED RELEASE 60 MG PO (07:57)
[2025-05-10] MEDS: FARXIGA 10 MG PO (07:57)
[2025-05-10] MEDS: NOVOLOG FLEXPEN-LOW RESISTANCE SC (08:00)
--- NOTE | 2025-05-10 08:24 | PHA.VAN.FU ---
Vancomycin Assessment / Plan
- Assessment
Renal Function: SCR Increasing (1.2->1.0 ( baseline))
WBC's are: Trending Down
In the past 24 hrs, patient has been: Afebrile
Concomitant Antimicrobials: pip/tazo
- Assessment - Therapeutic Drug Monitoring
Random Level: 8.1 - after last dose vanc 1250 mg on 05/09 10:00
- Dosing Plan
Adjust Regimen to: scheduled dosing 1000 mg q12h - to start this AM
- Monitoring Plan
No level(s) ordered at this time: consider levels tomorrow tina - after 4th dose
- Follow Up
Pharmacy will continue to follow.
Vancomycin Follow UP
- -
Patient Age: 64
Patient Sex: Male
Vancomycin Day #: 3
Indication: Skin And Soft Tissue
Requesting Provider: Dr. Osorio
Pertinent Antimicrobial Allergies:
NKDA
Height / Weight:
Height 6 ft
Actual Weight 98.146 kg
Pertinent Past Medical History: DM II, Cirrhosis
- Vital Signs / Lab Results
Temp Pulse Resp BP Pulse Ox
97.8 F 61 16 152/88 98
05/10/25 07:00 05/10/25 07:00 05/10/25 07:00 05/10/25 07:00 05/10/25 07:00
Lab Results - Hematology
05/08/25 05/09/25 05/10/25
11:04 06:22 06:33
WBC 8.6 6.6 4.0 L
Lab Results - Chemistry
05/08/25 05/09/25 05/10/25
11:04 06:22 06:33
BUN 38 H 32 H 26 H
Creatinine 1.2 1.2 1.0
Estimated Creat Clear 78 69 83
Albumin 3.2 L 3.0 L
05/08/25 05/08/25
11:04 15:00
Lactic Acid 1.2 Cancelled
Microbiology Results
05/08/25 19:30 Anaerobic Culture - Preliminary
Foot - Left Culture pending. Anaerobic cultures are examined after 3
days incubation. Additional information to follow.
05/08/25 19:30 Wound Culture - Preliminary
Foot - Left Gram Stain - Preliminary
05/08/25 11:04 Blood Culture - Preliminary
Blood/Venous Positive culture in progress
Gram Stain - Preliminary
05/08/25 17:28 MRSA Screen - Final
Nose No Methicillin Resistant Staphylococcus aureus isolated.
05/08/25 19:30 Gram Stain - Preliminary
Foot - Left
05/08/25 11:31 Blood Culture - Preliminary
Blood/Venous No Growth in 24 hours- Final report to follow
05/08/25 12:33 Wound Culture - Preliminary
Foot - Left Gram Stain - Preliminary
Therapeutic Drug Monitoring
Random Vancomycin 8.1 ug/ml 05/10/25 06:33
--- NOTE | 2025-05-10 09:18 | CON.MD ---
Consultation - Medical
-
64 year old male admitted through the ED with left foot draining ulcer as well as generally feeling ill. Radiographs positive for gas in the soft tissue and patient taken to the OR by Dr. Wray for emergency incision and drainage of the
ulcer/abscess and removal of the 2nd metatarsal head. IV Zosyn given as per ID and wound cultures pending. Taking over the case for Dr. Wray for planning of further debridement and partial wound closure. MRI performed 05/09 shows signal
abnormality at the distal remaining second metatarsal, suggestive of acute osteomyelitis. Diffuse midfoot bone marrow edema and arthritis noted likely due to neuropathic arthropathy, and severe acute on chronic muscle denervation throughout the
left foot. On examination today, wound shows development of healthy granulation tissue with stable wound edges and no sign of drainage or soft tissue necrosis. Minimal edema and erythema of the foot present. Patient currently afebrile with WBC 4.0
Impression/Plan
-Left foot acutely infected ulcer with gas gangrene
I and D with second metatarsal head resection performed by Dr. Wray 05/08
Vanco/Zosyn as per ID
MRI shows further infection at the distal remaining 2nd metatarsal neck. Erythema and edema resolving. No further wound drainage.
Plan for additional debridement of the second metatarsal and partial wound closure as well as amputation of the second toe, possibly tomorrow
Await initial OR culture results
Order wedge surgical shoe and walker for limited OOB to bathroom
-Poorly controlled diabetes mellitus with peripheral neuropathy
-Liver Cirrhosis related to Alcohol abuse
Concern regarding thrombocytopenia
--- NOTE | 2025-05-10 09:48 | W.PN.HOSP.TC ---
Today's Communication/Plan
-
Continue IV Zosyn, vancomycin
wedge surgical shoe and walker for limited OOB
Assessment / Plan
Assessment / Plan
Impression
64-year-old male presented to the ER with painful left foot with plantar bleeding ulcer.
Plan
#Diabetic foot ulcer
#Osteomyelitis
#S/p I & D, debridement, second metatarsal head resection
POD #2
Patient not septic at presentation
MRI left foot showed evidence of acute osteomyelitis in the remaining second metatarsal, severe arthritis of the third tarsometatarsal joint
Podiatry on board
Plan on debridement and second toe amputation tomorrow
Patient is afebrile, normal WBC count
Cultures still pending
Continue IV Zosyn and vancomycin, may require IV antibiotics for 6 weeks
ID on board�appreciate recs
Adequate pain control
Dressing as needed
Wedge surgical shoe and walker for limited OOB
#Type II DM with neuropathy
Continue ISS
Continue Lyrica
Continue Farxiga
#Thrombocytopenia
Chronic, at baseline
Likely due to cirrhosis
Will monitor for now
Diet�diabetic carb controlled
DVT prophylaxis�Lovenox
CODE STATUS--full code
Anticipated Discharge: 24 - 48 hours
Subjective/Interval History
-
Date of Service: May 10, 2025
No acute overnight issues
Objective Data
-
Labs:
Laboratory Results
05/10/25
06:33
WBC 4.0 L
Hgb 12.4 L
Hct 37.4 L
Plt Count 107 L
Sodium 138
Potassium 4.1
Chloride 110 H
Carbon Dioxide 21 L
BUN 26 H
Creatinine 1.0
Glucose 186 H
Calcium 8.0 L
Total Bilirubin 1.8 H
AST 27
ALT 24
Alkaline Phosphatase 175 H
Vital Signs:
Vital Signs
Temp Pulse Resp BP Pulse Ox
97.8 F 61 16 152/88 98
05/10/25 07:00 05/10/25 07:00 05/10/25 07:00 05/10/25 07:00 05/10/25 09:40
I&O
05/09/25 05/10/25 05/11/25
06:59 06:59 06:59
Intake Total 100 / 100 1840 / 1840
Output Total 1900 / 1900 500 / 500
Balance -1800 / -1800 1340 / 1340
Review of Systems
-
Constitutional: Denies Fever
Respiratory: Reports No Symptoms
Cardiac: Reports No Symptoms
Physical Exam
-
General: Well Developed, Well Nourished and No Apparent Distress
HEENT: Normocephalic and Atraumatic
Respiratory: Clear to Auscultation
Cardiac: Regular Rhythm and S1/S2
GI: Soft, Nontender, Nondistended and Normal Bowel Sounds
Musculoskeletal: Other (Left foot in Kee wrap, intact posterior tibial pulse.)
Skin: Warm and Dry
Neuro: Awake, Alert and Oriented
[2025-05-10] MEDS: VANCOCIN 200 IV ×2 (09:57→17:34)
[2025-05-10] MEDS: NOVOLOG FLEXPEN-LOW RESISTANCE 1 UNITS SC (10:02)
--- NOTE | 2025-05-10 11:14 | W.PN.ID1 ---
Date of Service
Date of Service: May 10, 2025
Today's Communication
Continue Zosyn, Vancomycin for now.
Assessment / Plan
# Diabetic left foot infected plantar wound with underlying osteomyelitis
# Left foot emphysematous cellulitis
# GPC bacteremia 1 of 2 sets - suspect contaminant.
# DM with neuropathy
# Cirrhosis
- 05/08 s/p OR radical I&D/deep interspace, excisional debridement of ulcer, 2nd met head resection left foot
- Await OR cx and path
- Will need further I+D, closure per podiatry.
- Continue Zosyn and Vancomycin
Chief Complaint
-: Cellulitis and Other
Subjective / Review of Systems
Not much pain.
Vital Signs / Physical Exam
Vital Signs
Vital Signs
Temp Pulse Resp BP Pulse Ox
97.8 F 61 16 152/88 98
05/10/25 07:00 05/10/25 07:00 05/10/25 07:00 05/10/25 07:00 05/10/25 09:40
Physical Exam
Constitutional: No Acute Distress and Comfortable
Cardiovascular: Regular Rate and S1/S2
Pulmonary: Clear
Gastrointestinal: Soft, Non Tender, Non Distended and Normal Bowel Sounds
Extremities: Negative Edema
Wound: Other (left foot dressing in place)
Neurological: AO x 3
Objective Data
Lab Data
Lab Results
05/10/25 06:33
05/10/25 06:33
Estimated Creat Clear 83 ml/min 05/10/25 06:33
Lactic Acid Cancelled 05/08/25 15:00
Total Bilirubin 1.8 mg/dl (0.2-1.3) H 05/10/25 06:33
AST 27 U/L (17-59) 05/10/25 06:33
ALT 24 U/L (0-50) 05/10/25 06:33
Alkaline Phosphatase 175 U/L (38-126) H 05/10/25 06:33
Most recent labs reviewed.
Micro Results:
05/08/25 11:04 Blood Culture - Preliminary
Blood/Venous Positive culture in progress
Gram Stain - Preliminary
05/08/25 19:30 Wound Culture - Preliminary
Foot - Left Gram Stain - Preliminary
05/08/25 19:30 Tissue Culture - Preliminary
Foot - Left Gram Stain - Preliminary
05/08/25 19:30 Anaerobic Culture - Preliminary
Foot - Left Culture pending. Anaerobic cultures are examined after 3
days incubation. Additional information to follow.
05/08/25 17:28 MRSA Screen - Final
Nose No Methicillin Resistant Staphylococcus aureus isolated.
05/08/25 11:31 Blood Culture - Preliminary
Blood/Venous No Growth in 24 hours- Final report to follow
05/08/25 12:33 Wound Culture - Preliminary
Foot - Left Gram Stain - Preliminary
05/08/25 L foot xray: Soft tissue swelling with gas in the soft tissues, consistent with cellulitis. Possible abscess collections and/or fasciitis.
[2025-05-10 11:51] LABS: Glucose - Point of Care 225 mg/dl (70-99)
[2025-05-10] MEDS: NOVOLOG FLEXPEN-LOW RESISTANCE 2 UNITS SC ×2 (11:51→16:14)
[2025-05-10 15:00] VITALS: BP 146/81
[2025-05-10] MEDS: TORADOL 15 MG IV (15:57)
[2025-05-10 16:07] LABS: Glucose - Point of Care 228 mg/dl (70-99)
[2025-05-10] MEDS: LOVENOX 40 MG SC (17:04)
[2025-05-10] MEDS: DILAUDID 0.25 MG IV (17:14)
[2025-05-10 21:17] LABS: Glucose - Point of Care 223 mg/dl (70-99)
[2025-05-10 23:15] VITALS: BP 150/90
[2025-05-11] VITALS (11 sets, daily range): BP systolic 126–167; BP diastolic 72–93; PULSE 63; O2SAT 96
[2025-05-11] MEDS: ZOSYN 50 IV ×4 (05:27→23:00)
[2025-05-11] MEDS: VANCOCIN 200 IV (06:08)
[2025-05-11 06:25] LABS: Glucose - Point of Care 173 mg/dl (70-99)
[2025-05-11] MEDS: NOVOLOG FLEXPEN-LOW RESISTANCE 1 UNITS SC (06:29)
--- NOTE | 2025-05-11 06:43 | W.PN.HOSP.TC ---
Today's Communication/Plan
-
debridement and second toe amputation/closure
Continue IV Zosyn, vancomycin
Assessment / Plan
Assessment / Plan
Impression
64-year-old male presented to the ER with painful left foot with plantar bleeding ulcer.
Plan
#Diabetic foot ulcer
#Osteomyelitis
#S/p I & D, debridement, second metatarsal head resection
POD #3
Patient not septic at presentation
MRI left foot showed evidence of acute osteomyelitis in the remaining second metatarsal, severe arthritis of the third tarsometatarsal joint
Podiatry on board
Scheduled for debridement and second toe amputation/closure today
Patient is afebrile, WBC 8.6 >>3.1
Cultures still pending
Continue IV Zosyn and vancomycin, may require IV antibiotics for 6 weeks
Will change antibiotics pending sensitivities
ID on board�appreciate recs
Adequate pain control
Dressing as needed
Wedge surgical shoe and walker for limited OOB
#Type II DM with neuropathy
Continue ISS
Patient n.p.o. since midnight
Continue Lyrica
Continue Farxiga
#Thrombocytopenia
Chronic, at baseline
Likely due to cirrhosis
Will monitor for now
Diet�n.p.o. since midnight for OR today
DVT prophylaxis�Lovenox
CODE STATUS--full code
Anticipated Discharge: 24 - 48 hours
Subjective/Interval History
-
Date of Service: May 11, 2025
Note acute overnight issues.
Objective Data
-
Labs:
Laboratory Results
05/11/25
06:22
WBC Pending
Hgb Pending
Hct Pending
Plt Count Pending
Sodium Pending
Potassium Pending
Chloride Pending
Carbon Dioxide Pending
BUN Pending
Creatinine Pending
Glucose Pending
Calcium Pending
Total Bilirubin Pending
AST Pending
ALT Pending
Alkaline Phosphatase Pending
Vital Signs:
Vital Signs
Temp Pulse Resp BP Pulse Ox
97.9 F 60 19 150/90 96
05/10/25 23:15 05/10/25 23:15 05/10/25 23:15 05/10/25 23:15 05/10/25 23:15
I&O
05/09/25 05/10/25 05/11/25
06:59 06:59 06:59
Intake Total 100 / 100 1840 / 1840 830 / 830
Output Total 1900 / 1900 500 / 500 1100 / 1100
Balance -1800 / -1800 1340 / 1340 -270 / -270
Review of Systems
-
All other systems: Reviewed and negative
Physical Exam
-
General: Well Developed, Well Nourished and No Apparent Distress
HEENT: Normocephalic and Atraumatic
Respiratory: Clear to Auscultation
Cardiac: Regular Rhythm and S1/S2
GI: Soft, Nontender, Nondistended and Normal Bowel Sounds
Musculoskeletal: Other (Left foot in Kee wrap, intact posterior tibial pulse.)
Skin: Warm and Dry
Neuro: Awake, Alert, Oriented and AO x 3
[2025-05-11 07:04] LABS: Hematocrit 38.9 % (39.0-52.0); Hemoglobin 13.3 g/dL (13.0-18.0); Mean Corp Hgb Conc. 34.2 g/dL (33.0-37.0); Mean Corpuscular Hgb 31.9 pg (27.0-31.0); Mean Corpuscular Volume 93.3 fL (80.0-94.0); Mean Platelet Volume 10.7 fL (7.4-10.4); Platelet Count 109 10^3/uL (130-400); Red Blood Cell Count 4.17 10^6/uL (4.70-6.10); Red Cell Dist. Width 14.3 % (11.5-14.5); White Blood Cell Count 3.1 10^3/uL (4.8-10.8)
[2025-05-11 08:03] LABS: ALT (SGPT) 24 U/L (0-50); AST (SGOT) 28 U/L (17-59); Albumin 3.1 g/dl (3.5-5.0); Alkaline Phosphatase 190 U/L (38-126); Blood Urea Nitrogen 22 mg/dl (9-20); Calcium 8.1 mg/dl (8.4-10.2); Carbon Dioxide 19 mmol/L (22-30); Chloride 113 mmol/L (98-107); Estimated Creatinine Clearance 75 ml/min; Glucose 184 mg/dl (70-99); Potassium 4.1 mmol/L (3.5-5.1); Sodium 139 mmol/L (135-145); Total Bilirubin 1.8 mg/dl (0.2-1.3); Total Protein 6.1 g/dl (6.3-8.2); eGFR > 60.00
[2025-05-11] MEDS: CYMBALTA DELAYED RELEASE 60 MG PO (08:47)
[2025-05-11] MEDS: FARXIGA 10 MG PO (08:47)
[2025-05-11] MEDS: LYRICA 75 MG PO ×3 (08:47→21:05)
--- NOTE | 2025-05-11 10:16 | W.PN.ID1 ---
Date of Service
Date of Service: May 11, 2025
Today's Communication
Continue Zosyn
Assessment / Plan
# Diabetic left foot infected plantar wound with underlying osteomyelitis
# Left foot emphysematous cellulitis
# GPC bacteremia 1 of 2 sets ? contaminant.
# DM with neuropathy
# Cirrhosis
- 05/08 s/p OR radical I&D/deep interspace, excisional debridement of ulcer, 2nd met head resection left foot
- OR Gram stain: GPC, GNR, GPR; cx MSSA
PAth pending
- post-op MRI + osteo
- check arterial duplex
- Will need further I+D, closure per podiatry.
- Continue Zosyn
- Agree with dc Vancomycin
Chief Complaint
-: Cellulitis and Other
Subjective / Review of Systems
No specific complaints.
Vital Signs / Physical Exam
Vital Signs
Vital Signs
Temp Pulse Resp BP Pulse Ox
97.8 F 59 16 149/86 97
05/11/25 07:00 05/11/25 07:00 05/11/25 07:00 05/11/25 07:00 05/11/25 07:00
Physical Exam
Constitutional: No Acute Distress and Comfortable
Cardiovascular: Regular Rate and S1/S2
Pulmonary: Clear
Gastrointestinal: Soft, Non Tender, Non Distended and Normal Bowel Sounds
Extremities: Negative Edema
Wound: Other (left foot dressing in place)
Neurological: AO x 3
Objective Data
Lab Data
Lab Results
05/11/25 06:22
05/11/25 06:22
Estimated Creat Clear 75 ml/min 05/11/25 06:22
Lactic Acid Cancelled 05/08/25 15:00
Total Bilirubin 1.8 mg/dl (0.2-1.3) H 05/11/25 06:22
AST 28 U/L (17-59) 05/11/25 06:22
ALT 24 U/L (0-50) 05/11/25 06:22
Alkaline Phosphatase 190 U/L (38-126) H 05/11/25 06:22
Most recent labs reviewed.
Micro Results:
05/08/25 11:04 Blood Culture - Preliminary
Blood/Venous Positive culture in progress
Gram Stain - Preliminary
05/08/25 19:30 Tissue Culture - Final
Foot - Left S aureus-Methicillin Sensitive
Gram Stain - Final
05/08/25 19:30 Wound Culture - Preliminary
Foot - Left S aureus-Methicillin Sensitive
Gram Stain - Preliminary
05/08/25 12:33 Wound Culture - Final
Foot - Left Enterobacter cloacae
S aureus-Methicillin Sensitive
Gram Stain - Final
05/08/25 11:31 Blood Culture - Preliminary
Blood/Venous No Growth in 48 hours- Final report to follow
05/08/25 19:30 Anaerobic Culture - Preliminary
Foot - Left Culture pending. Anaerobic cultures are examined after 3
days incubation. Additional information to follow.
05/08/25 17:28 MRSA Screen - Final
Nose No Methicillin Resistant Staphylococcus aureus isolated.
05/09/25 MRI LE: Severe intramedullary signal abnormality in the DISTAL END of the remaining 2ND METATARSAL most suggestive of ACUTE OSTEOMYELITIS. Severe reactive bone marrow edema is an alternative diagnostic possibility, but the proximity to the
large ulcer extending through the full-thickness of the forefoot (through both the dorsal and plantar skin surface), makes acute osteomyelitis more likely. SEVERE ARTHRITIS of the 3rd TARSOMETATARSAL JOINT and more moderate arthritis in the other
tarsometatarsal joints which is likely secondary to severe neuropathic arthropathy. Septic arthritis and acute osteomyelitis is considered less likely given the distance from the large ulcer. 1.4 cm joint effusion protruding dorsally from the 3rd
tarsometatarsal joint.
05/08/25 L foot xray: Soft tissue swelling with gas in the soft tissues, consistent with cellulitis. Possible abscess collections and/or fasciitis.
Care Review
Plan reviewed with: Physician (Dr. Knowles)
[2025-05-11 12:01] LABS: Glucose - Point of Care 142 mg/dl (70-99)
[2025-05-11] MEDS: NOVOLOG FLEXPEN-LOW RESISTANCE SC (12:03)
[2025-05-11] MEDS: LYRICA PO (12:25)
--- NOTE | 2025-05-11 13:49 | W.PN.UPDATE ---
Update Note
Progress Note Update
Patient to OR today for left 2nd toe, left partial second met amputation and revision of I and D. Patient tolerated procedure and anesthesia without complication and returned to the recovery room with vital signs stable and neurovascular status in
tact. Plantar wound closed and packed from dorsal distal aspect. Clean margin of 2nd metatarsal sent to pathology to determine if surgical cure of osteomyelitis has been achieved. Partial weight bearing with wedge surgical shoe only and dressing
to be reinforced only.
--- NOTE | 2025-05-11 14:50 | PTCARENOTE ---
Patient postop #0, s/p L 2nd toe/partial second met amputation, revision of I&D. + DP pulse, + wiggle toes. No current pain. Dressing with small spot of serosang drainage that EDGING SUPERVISOR notified primary RN prior to patient's arrival back to unit.
[2025-05-11 16:19] LABS: Glucose - Point of Care 213 mg/dl (70-99)
[2025-05-11] MEDS: NOVOLOG FLEXPEN-LOW RESISTANCE 2 UNITS SC (16:33)
[2025-05-11] MEDS: LOVENOX 40 MG SC (17:26)
[2025-05-11] MEDS: DILAUDID 0.25 MG IV ×2 (17:30→21:37)
[2025-05-11 21:15] LABS: Glucose - Point of Care 256 mg/dl (70-99)
[2025-05-12 03:08] VITALS: BP 131/77
[2025-05-12] MEDS: ZOSYN 50 IV ×2 (05:43→12:05)
--- NOTE | 2025-05-12 06:58 | W.PN.HOSP.TC ---
Today's Communication/Plan
-
Continue IV Zosyn
Wound care with daily dressing
Assessment / Plan
Assessment / Plan
Impression
64-year-old male presented to the ER with painful left foot with plantar bleeding ulcer.
Plan
#Diabetic foot ulcer
#Osteomyelitis
#S/p second toe amputation, metatarsal neck amputation, revision of I & D from 05/08/2025
POD #1
MRI left foot showed evidence of acute osteomyelitis in the remaining second metatarsal, severe arthritis of the third tarsometatarsal joint
Patient is afebrile, WBC not elevated
Cultures with Enterobacter cloacae, MSSA
Vancomycin discontinued
Continue IV Zosyn, will transition to oral doxycycline X 14 days at discharge
Podiatry on board-okay to be discharged
ID on board
PT/OT-recommended home PT at discharge
Adequate pain control
Dressing as needed
Wound care with daily dressings
Partial weightbearing
#Type II DM with neuropathy
Bilateral lower extremity arterial study�MOUNIKA within normal range, right�1.23, left�1.22.
Continue ISS
Continue Lyrica
Continue Farxiga
#Thrombocytopenia
Chronic, at baseline
Likely due to cirrhosis
Will monitor for now
Diet�carb controlled
DVT prophylaxis�Lovenox
CODE STATUS--full code
Anticipated Discharge: Within 24 hours
Subjective/Interval History
-
Date of Service: May 12, 2025
Patient reports no acute overnight events.
Objective Data
-
Labs:
Laboratory Results
05/12/25
06:35
WBC Pending
Hgb Pending
Hct Pending
Plt Count Pending
Sodium Pending
Potassium Pending
Chloride Pending
Carbon Dioxide Pending
BUN Pending
Creatinine Pending
Glucose Pending
Calcium Pending
Total Bilirubin Pending
AST Pending
ALT Pending
Alkaline Phosphatase Pending
Vital Signs:
Vital Signs
Temp Pulse Resp BP Pulse Ox
97.3 F 58 20 131/77 97
05/12/25 03:08 05/12/25 03:08 05/12/25 03:08 05/12/25 03:08 05/12/25 03:08
I&O
05/10/25 05/11/25 05/12/25
06:59 06:59 06:59
Intake Total 1840 / 1840 830 / 830 960 / 960
Output Total 500 / 500 1400 / 1400 1200 / 1200
Balance 1340 / 1340 -570 / -570 -240 / -240
Physical Exam
-
General: Well Developed, Well Nourished and No Apparent Distress
HEENT: Normocephalic and Atraumatic
Respiratory: Clear to Auscultation
Cardiac: Regular Rhythm, S1/S2 and Murmur
GI: Soft, Nontender, Nondistended and Normal Bowel Sounds
Musculoskeletal: Other (Left foot, covered with Kee wrap. Neurovasculature intact.)
Skin: Warm and Dry
Neuro: Awake, Alert, Oriented and AO x 3
Psych: Calm
[2025-05-12 07:23] LABS: Hematocrit 39.3 % (39.0-52.0); Hemoglobin 13.4 g/dL (13.0-18.0); Mean Corp Hgb Conc. 34.1 g/dL (33.0-37.0); Mean Corpuscular Volume 93.8 fL (80.0-94.0); Mean Platelet Volume 10.7 fL (7.4-10.4); Platelet Count 109 10^3/uL (130-400); Red Blood Cell Count 4.19 10^6/uL (4.70-6.10); Red Cell Dist. Width 13.8 % (11.5-14.5); White Blood Cell Count 4.1 10^3/uL (4.8-10.8)
[2025-05-12 07:27] LABS: Glucose - Point of Care 151 mg/dl (70-99)
[2025-05-12 07:30] VITALS: BP 145/82
[2025-05-12 08:10] LABS: ALT (SGPT) 22 U/L (0-50); AST (SGOT) 25 U/L (17-59); Albumin 2.9 g/dl (3.5-5.0); Alkaline Phosphatase 180 U/L (38-126); Blood Urea Nitrogen 21 mg/dl (9-20); Carbon Dioxide 22 mmol/L (22-30); Chloride 109 mmol/L (98-107); Estimated Creatinine Clearance 75 ml/min; Glucose 144 mg/dl (70-99); Potassium 4.2 mmol/L (3.5-5.1); Sodium 137 mmol/L (135-145); Total Bilirubin 1.5 mg/dl (0.2-1.3); Total Protein 5.8 g/dl (6.3-8.2); eGFR > 60.00
[2025-05-12] MEDS: CYMBALTA DELAYED RELEASE 60 MG PO (08:10)
[2025-05-12] MEDS: LYRICA 75 MG PO ×3 (08:10→17:02)
[2025-05-12] MEDS: NOVOLOG FLEXPEN-LOW RESISTANCE 1 UNITS SC ×2 (08:10→12:04)
[2025-05-12] MEDS: FARXIGA 10 MG PO (08:10)
--- NOTE | 2025-05-12 08:34 | W.PN.POD ---
Today's Communication
Today's Communication
-Surgical site stable
-Discharge pending ID plan for outpatient antibiotic therapy
Assessment / Plan
-
Left foot abscess/cellulitis with osteomyelitis 2nd metatarsal
-POD#1 amputation of left 2nd toe and metatarsal neck with revision of I and D 05/08
-Wound stable with excellent arterial perfusion and healthy granulation tissue present
-Initial wound culture positive for MSSA and E. Cloacae
-Likely achieved surgical cure with 05/11 debridement. Clean margin taken from remaining 2nd metatarsal but may need PICC line regardless. Defer to ID service for outpatient antibiotic plan
-From surgical standpoint, patient can be discharged with daily dressing changes and partial weight bearing in wedge shoe
Diabetic neuropathy
Thrombocytopenia
-likely due to liver cirrhosis
Subjective
Objective
Temp Pulse Resp BP Pulse Ox
97.5 F 56 16 145/82 98
05/12/25 07:30 05/12/25 07:30 05/12/25 07:30 05/12/25 07:30 05/12/25 07:30
05/12/25 06:35
05/12/25 06:35
Vital Signs and Lab results were reviewed.
Physical Exam
Physical Exam
Packing pulled and granulation tissue only noted with no soft tissue necrosis and no purulent drainage. Wound edges stable and sutures in tact.
--- NOTE | 2025-05-12 10:38 | W.PN.ID1 ---
Date of Service
Date of Service: May 12, 2025
Today's Communication
- Can transition Zosyn to doxycycline 100mg po bid x 14 more days.
Assessment / Plan
# Diabetic left foot infected plantar wound with underlying osteomyelitis
# Left foot emphysematous cellulitis
# GPC bacteremia 1 of 2 sets = contaminant. Spoke to micro NOT S. aureus
# DM with neuropathy
# Cirrhosis
- Wound swab: MSSA, Enterobacter
- 05/08 s/p OR radical I&D/deep interspace, excisional debridement of ulcer, 2nd met head resection left foot
- OR Gram stain: GPC, GNR, GPR; cx MSSA
PAth pending
- post-op MRI + osteo
- arterial duplex no significant stenois
- 05/11 s/p left 2nd toe, left partial second met amputation and revision of I and D.
Path pending
- Per podiatry, surgical cure
- Can transition Zosyn to doxycycline 100mg po bid x 14 more days.
Chief Complaint
-: Cellulitis and Other
Subjective / Review of Systems
Feels well.
Vital Signs / Physical Exam
Vital Signs
Vital Signs
Temp Pulse Resp BP Pulse Ox
97.5 F 56 16 145/82 98
05/12/25 07:30 05/12/25 07:30 05/12/25 07:30 05/12/25 07:30 05/12/25 07:30
Physical Exam
Constitutional: No Acute Distress and Comfortable
Cardiovascular: Regular Rate and S1/S2
Pulmonary: Clear
Gastrointestinal: Soft, Non Tender, Non Distended and Normal Bowel Sounds
Extremities: Negative Edema
Wound: Other (left foot dressing in place)
Neurological: AO x 3
Objective Data
Lab Data
Lab Results
05/12/25 06:35
05/12/25 06:35
Estimated Creat Clear 75 ml/min 05/12/25 06:35
Lactic Acid Cancelled 05/08/25 15:00
Total Bilirubin 1.5 mg/dl (0.2-1.3) H 05/12/25 06:35
AST 25 U/L (17-59) 05/12/25 06:35
ALT 22 U/L (0-50) 05/12/25 06:35
Alkaline Phosphatase 180 U/L (38-126) H 05/12/25 06:35
Most recent labs reviewed.
Micro Results:
05/08/25 11:04 Blood Culture - Preliminary
Blood/Venous Positive culture in progress
Gram Stain - Preliminary
05/08/25 11:31 Blood Culture - Preliminary
Blood/Venous No Growth in 72 hours- Final report to follow
05/08/25 19:30 Tissue Culture - Final
Foot - Left S aureus-Methicillin Sensitive
Gram Stain - Final
05/08/25 19:30 Wound Culture - Preliminary
Foot - Left S aureus-Methicillin Sensitive
Gram Stain - Preliminary
05/08/25 12:33 Wound Culture - Final
Foot - Left Enterobacter cloacae
S aureus-Methicillin Sensitive
Gram Stain - Final
05/08/25 19:30 Anaerobic Culture - Preliminary
Foot - Left Culture pending. Anaerobic cultures are examined after 3
days incubation. Additional information to follow.
05/08/25 17:28 MRSA Screen - Final
Nose No Methicillin Resistant Staphylococcus aureus isolated.
05/09/25 MRI LE: Severe intramedullary signal abnormality in the DISTAL END of the remaining 2ND METATARSAL most suggestive of ACUTE OSTEOMYELITIS. Severe reactive bone marrow edema is an alternative diagnostic possibility, but the proximity to the
large ulcer extending through the full-thickness of the forefoot (through both the dorsal and plantar skin surface), makes acute osteomyelitis more likely. SEVERE ARTHRITIS of the 3rd TARSOMETATARSAL JOINT and more moderate arthritis in the other
tarsometatarsal joints which is likely secondary to severe neuropathic arthropathy. Septic arthritis and acute osteomyelitis is considered less likely given the distance from the large ulcer. 1.4 cm joint effusion protruding dorsally from the 3rd
tarsometatarsal joint.
05/08/25 L foot xray: Soft tissue swelling with gas in the soft tissues, consistent with cellulitis. Possible abscess collections and/or fasciitis.
[2025-05-12 11:59] LABS: Glucose - Point of Care 181 mg/dl (70-99)
--- NOTE | 2025-05-12 15:00 | CM ---
Received notification that patient will be cleared for discharge. Met with patient who stated that his friend is coming to pick him up in the early evening. He was agreeable to VN and chose . (For wound care). Patient stated that he can do his own
wound care on the days that the Wound Care won't be there.
Order requested for VN.
Referral made to .
Plan: Case management will continue to follow and assist with discharge planning. Home with [facility].
[2025-05-12 15:19] VITALS: BP 143/79
--- NOTE | 2025-05-12 15:41 | VNURNOTE ---
Home Health Liaison spoke with patient at bedside to discuss [facility] nurse/therapy, visits, schedule and homebound status. Patient is agreeable and understands that visits at home will be 2-3 x per week to assess and teach medical management. Patient
is aware that [facility] will contact them for start of care in 1-2 days after discharge from .
[facility] referral completed in [facility].
--- NOTE | 2025-05-14 13:04 | W.DCSUMMARY ---
Documented by User: Abraham Knowles MD, Resident 05/14/25 14:30
Discharge Summary
Discharge Data
Date of Admission: 05/08/25
Date of Discharge: 05/12/25
-
Pending Results: No
Hospital Course
Discharging Physician : Dr. Gates, Dr. Rosario
Disposition : Home with home care
Principal Discharge diagnosis : Diabetic foot ulcer, osteomyelitis, s/p second toe amputation, metatarsal neck amputation, I&D.
Hospital Course : 64-year-old male with a past medical history significant for type 2 diabetes mellitus and cirrhosis from alcohol presents to the ER reporting left foot pain with bleeding from a foot ulcer. He states that he had chills, fatigue
but no fevers. No purulent drainage. X-ray showed evidence of soft tissue swelling with gas consistent with cellulitis, but no evidence of osteomyelitis. Patient was started on IV vancomycin and Zosyn. He was afebrile at presentation, normal
white count, BUN/creatinine�38/1.2. Patient was seen by podiatry, and had I&D, debridement and second metatarsal head resection on 05/08/2025. ID was also consulted. MRSA negative, his vancomycin discontinued. MRI left foot showed evidence of
acute osteomyelitis in the remaining second metatarsal. Patient needed a revision procedure with I&D, second toe amputation and metatarsal neck amputation. Patient also underwent bilateral lower extremity arterial study�MOUNIKA within normal range,
right�1.23, left�1.22. Patient's vitals and labs have been monitored regularly. Patient was also continued on Jardiance and ISS for his diabetes. For his diabetic neuropathy was continued on pregabalin. Patient has clinically improved and
hemodynamically stable to be discharged. PT/OT recommended home with home care. At the time of discharge, he was prescribed doxycycline 100 mg, twice daily for 14 days.
Important imaging findings :
Lower extremity MRI�05/09/2025�
1. Severe intramedullary signal abnormality in the DISTAL END of the remaining 2ND METATARSAL most suggestive of ACUTE OSTEOMYELITIS. Severe reactive bone marrow edema is an alternative diagnostic possibility, but the proximity to the large ulcer
extending through the full-thickness of the forefoot (through both the dorsal and plantar skin surface), makes acute osteomyelitis more likely.
2. SEVERE ARTHRITIS of the 3rd TARSOMETATARSAL JOINT and more moderate arthritis in the other tarsometatarsal joints which is likely secondary to severe neuropathic arthropathy. Septic arthritis and acute osteomyelitis is considered less likely
given the distance from the large ulcer. 1.4 cm joint effusion protruding dorsally from the 3rd tarsometatarsal joint.
3. Moderate arthritis of the left 1st MTP joint with a hallux valgus deformity and subchondral bone marrow edema in the 1st metatarsal head.
4. Severe acute on chronic muscle denervation throughout the left foot.
Lower extremity arterial study�05/11/2025�
RIGHT LOWER EXTREMITY: MOUNIKA within normal limits at 1.23. TBI within normal limits at 1.03. Arterial duplex examination reveals multiphasic waveforms from the common femoral artery through the popliteal artery with no focal velocity elevations to
suggest significant analysis across this segment.
LEFT LOWER EXTREMITY: MOUNIKA within normal limits at 1.22. Unable to obtain toe pressure/TBI due to presence of bandage. Arterial duplex examination reveals multiphasic waveforms from the common femoral artery through the popliteal artery with no focal
velocity elevations to suggest significant stenosis across this segment.
Foot x-ray�05/11/2025
Status post resection of the distal portion of the second metatarsal stump. Proximal half of the second metatarsal has satisfactory radiographic appearance
Hallux valgus deformity of great toe. This is accompanied by moderate osteoarthritis of first MTP joint.
Discharge Plan
-
Patient Disposition: Home with Home Care
Discharge Diagnosis/Procedures: Left foot osteomyelitis
S/p left second toe and metatarsal neck amputation, incision and debridement
Diabetes mellitus type 2
Diet: Diabetic, Carb Controlled
Additional Activity: Partial weightbearing in wedge shoe
Driving Restrictions: Not until seen by your Dr
Bathing Restrictions: None
Other Services: VN and PT
Wound Care: daily dressings
Referrals:
Amira Davis PA-C [Family Provider, Internal Medicine] - in less than 1 week
Elana Raya DPM [Specified Professional Personl, Podiatry] - in one to two weeks
Prescriptions:
New
doxycycline hyclate 100 mg capsule
100 mg PO BID 14 Days Qty: 28 0RF
Continued
duloxetine [Cymbalta] 60 mg Capsule,Delayed Release(Dr/Ec)
60 mg PO DAILY
pregabalin [Lyrica] 75 mg Capsule
75 mg PO QID
Jardiance 10 mg Tablet
10 mg PO DAILY
ibuprofen-acetaminophen [Advil Dual Action] 125-250 mg Tablet
3 tab PO DAILYPRN PRN (Reason: mild pain)
Discharge Orders:
Discharge Patient (As Directed); Ordered 05/12/25
Ordered By: Abraham Knowles
Discharge Date and Time
Discharge Date/Time: 05/12/25 17:16
Print Language: FINNISH

Documented by User: Derrick Gates DO 05/14/25 14:40
Discharge Summary
Discharge Data
Date of Admission: 05/08/25
Date of Discharge: 05/12/25
Total time spent discharging patient (in min): 33
Discharge Plan
-
Patient Disposition: Home with Home Care
Discharge Diagnosis/Procedures: Left foot osteomyelitis
S/p left second toe and metatarsal neck amputation, incision and debridement
Diabetes mellitus type 2
Diet: Diabetic, Carb Controlled
Additional Activity: Partial weightbearing in wedge shoe
Driving Restrictions: Not until seen by your Dr
Bathing Restrictions: None
Other Services: VN and PT
Wound Care: daily dressings
Referrals:
Amira Davis PA-C [Family Provider, Internal Medicine] - in less than 1 week
Elana Raya DPM [Specified Professional Personl, Podiatry] - in one to two weeks
Prescriptions:
New
doxycycline hyclate 100 mg capsule
100 mg PO BID 14 Days Qty: 28 0RF
Continued
duloxetine [Cymbalta] 60 mg Capsule,Delayed Release(Dr/Ec)
60 mg PO DAILY
pregabalin [Lyrica] 75 mg Capsule
75 mg PO QID
Jardiance 10 mg Tablet
10 mg PO DAILY
ibuprofen-acetaminophen [Advil Dual Action] 125-250 mg Tablet
3 tab PO DAILYPRN PRN (Reason: mild pain)
Discharge Orders:
Discharge Patient (As Directed); Ordered 05/12/25
Ordered By: Abraham Knowles
Discharge Date and Time
Discharge Date/Time: 05/12/25 17:16
Print Language: FINNISH
== END 2025-05-12 17:16 | disposition home health service (06) | DRG 616 ==
LOC: 4 EAST ACU 14:08
PROVIDERS: Student in an Organized Health Care Education/Training Program; ADMITTING PHYSICIAN Internal Medicine; ATTENDING PHYSICIAN Internal Medicine; CONSULT PHYSICIAN Internal Medicine Infectious Disease; EMERGENCY PHYSICIAN Emergency Medicine; FAMILY PHYSICIAN Physician Assistant; OTHER PHYSICIAN Podiatrist Foot & Ankle Surgery; OTHER PHYSICIAN Podiatrist Foot Surgery
PROC: 0Y6N0ZB Detachment at Left Foot, Partial 2nd Ray, Open Approach (ICD-10-PCS; 2025-05-08)
PROC: 0QBP0ZZ Excision of Left Metatarsal, Open Approach (ICD-10-PCS; 2025-05-08)
PROC: 0Y6N0Z5 Detachment at Left Foot, Complete 2nd Ray, Open Approach (ICD-10-PCS; 2025-05-11)
DX: E11.69 Type 2 diabetes mellitus with other specified complication (principal); A48.0 Gas gangrene; L03.116 Cellulitis of left lower limb; L97.429 Non-pressure chronic ulcer of left heel and midfoot with unspecified severity; M86.172 Other acute osteomyelitis, left ankle and foot; L02.612 Cutaneous abscess of left foot; E11.52 Type 2 diabetes mellitus with diabetic peripheral angiopathy with gangrene; E11.621 Type 2 diabetes mellitus with foot ulcer; E78.00 Pure hypercholesterolemia, unspecified; F10.10 Alcohol abuse, uncomplicated; D69.6 Thrombocytopenia, unspecified; I10 Essential (primary) hypertension; E11.42 Type 2 diabetes mellitus with diabetic polyneuropathy; E11.65 Type 2 diabetes mellitus with hyperglycemia; K70.30 Alcoholic cirrhosis of liver without ascites; Z79.84 Long term (current) use of oral hypoglycemic drugs; E11.610 Type 2 diabetes mellitus with diabetic neuropathic arthropathy; M19.072 Primary osteoarthritis, left ankle and foot; Z79.899 Other long term (current) drug therapy
CPT/HCPCS: 88304; 88305; 88311; 73620; 73630; 73718; 80048; 80053; 80202; 82962; 83605; 83735; 85025; 85027; 87040; 87070; 87075; 87077; 87147; 87154; 87176; 87186; 87205; 93922; 93925; 96365; 96366; 96367; 96375; 97162; 97530; 99285